=== PATIENT | female | born 1980 | race Caucasian/White ===

== ENCOUNTER 2021-10-17 07:45 | Emergency (ER) | payer MEDICAID ==
[~2021-10-17] VITALS: Ht 162.6 cm; Wt 81.6 kg
[2021-10-17 08:07] VITALS: BP 121/75
--- NOTE | 2021-10-17 08:07 | NUR ---
BIBS C/O THROAT PAIN SINCE LAST NIGHT
--- NOTE | 2021-10-17 08:19 | NUR ---
Patient discharged to home in stable condition. Written and verbal after care instructions given. Patient verbalizes understanding of instruction.
== END 2021-10-17 08:27 | disposition home or self-care (01) ==
LOC: ER 07:56
DX: K20.90 Esophagitis, unspecified without bleeding (principal)